=== PATIENT | male | born 1975 | race Hispanic/Latino ===

== ENCOUNTER 2024-09-15 16:25 | Emergency (ER) | payer SELFPAY ==
[~2024-09-15] VITALS: Ht 167.6 cm; Wt 125.0 kg
[2024-09-15 16:41] VITALS: BP 113/76
[2024-09-15 16:45] VITALS: BP 103/75
[2024-09-15 16:56] VITALS: BP 103/75
== END 2024-09-15 17:10 | disposition home or self-care (01) | DRG 395 ==
LOC: ED 16:25
DX: K42.9 Umbilical hernia without obstruction or gangrene (principal)